=== PATIENT | male | born 1970 | race Caucasian/White ===

== ENCOUNTER 2023-08-07 19:11 | Emergency (ER) | payer BC ==
[2023-08-07] MEDS ORDERED: Lidocaine 1% PF 5 ML VIAL ONE (19:34)
== END 2023-08-07 19:44 | disposition home or self-care (01) ==
LOC: MADERS 19:11
DX: S61.211A Laceration without foreign body of left index finger without damage to nail, initial encounter (principal); F17.210 Nicotine dependence, cigarettes, uncomplicated; W26.0XXA Contact with knife, initial encounter
CPT/HCPCS: 12001